=== PATIENT | male | born 1955 | race Caucasian/White ===

== ENCOUNTER 2020-03-22 20:27 | Emergency (ER) | payer OTHER, SELFPAY ==
[2020-03-22 20:46] VITALS: BP 197/110; PULSE 119; RESP 18; TEMP 37.2; O2SAT 100; BMI 22.8
--- NOTE | 2020-03-22 21:00 | PC.NURSE ---
Patient reports trip and fall at home, hitting face on doorway. Patient denies dizziness or LOC, reports mechanical fall. Laceration noted to left cheek. Denies any other injuries.
[2020-03-22 21:02] VITALS: PULSE 105; O2SAT 98
--- NOTE | 2020-03-22 21:29 | ED.WOUNDLAC ---
HPI - Wound/Laceration General Chief Complaint: Wound/Laceration Stated Complaint: fall, hit face, wound Time Seen by Provider: 03/22/20 21:28 Source: patient Mode of arrival: Ambulatory Limitations: no limitations History of Present Illness HPI narrative: Patient is a 64-year-old male who presents with left cheek laceration. He said he fell on his face and his glasses cut just below his left eye. No loss of consciousness on anti anti-platelet or anticoagulation medications. No other injury. Onset (ago): hour(s) Location: face Related Data Home Medications Medication Instructions Recorded Confirmed No Known Home Medications 03/22/20 03/22/20 Allergies Allergy/AdvReac Type Severity Reaction Status Date / Time No Known Drug Allergies Allergy Verified 03/22/20 20:49 Review of Systems Review of Systems Narrative: GENERAL: Denies chills,fever HEENT: Denies throat pain RESPIRATORY: Denies dyspnea, cough, wheezing CARDIOVASCULAR: Denies chest pain, palpitations GASTROINTESTINAL: Denies nausea, vomiting MUSCULOSKELETAL: Denies extremity pain, injury SKIN: See HPI NEUROLOGIC: Denies weakness, dizziness, headache, numbness 8 point review of systems is negative except for those stated above and HPI Patient History Medical History Patient denies medical problems Social History Smoking Status: Never smoker Smoking Status: Never smoker tobacco type: smokeless tobacco alcohol intake frequency: 3 or more drinks per day Alcohol type: beer Substance Use Type: does not use Exam Initial Vital Signs Initial Vital Signs: Vital Signs Temperature 98.9 F 03/22/20 20:46 Pulse Rate 119 H 03/22/20 20:46 Respiratory Rate 18 03/22/20 20:46 Blood Pressure 197/110 H 03/22/20 20:46 Pulse Oximetry 100 03/22/20 20:46 GENERAL: Well-appearing, well-nourished and in no acute distress. CARDIOVASCULAR: peripheral pulses in tact, cap refill <2 sec RESPIRATORY: No respiratory distress, speaks in full sentences without difficulty EXTREMITIES: Normal range of motion, no clubbing or edema. Neurovascularly intact NEUROLOGICAL: Cranial nerves II through XII grossly intact. Normal gait and speech. SKIN: 4 cm laceration left inferior left eye Procedures Laceration Repair Laceration 1: Site: face Side (If applicable): left Size (cm): 4 Description: linear Depth: simple, single layer Local Anesthetic: lidocaine 1% and with epi Amount of anesthesia used (mL): 4 Pre-repair: wound explored, irrigated extensively and deep structures intact Skin layer closed with: nylon Size (cm): 5-0 Number of sutures: 4 Technique: simple, interrupted Course Orders Ordered: Discontinued Medications Lidocaine/Epinephrine (Lidocaine 1% W/Epi) 1 ml SUBCUT NOW ONE Stop: 03/22/20 21:39 Last Admin: 03/22/20 21:41 Dose: 1 ml Documented by: TODD Vital Signs Vital signs: Vital Signs - 8 hr 03/22/20 20:46 03/22/20 21:02 03/22/20 21:30 Temperature 98.9 F Pulse Rate 119 H 105 H 107 H Respiratory Rate 18 Blood Pressure 197/110 H 168/89 H Pulse Oximetry 100 98 98 03/22/20 22:00 Temperature Pulse Rate 106 H Respiratory Rate Blood Pressure 179/88 H Pulse Oximetry 98 Discharge Plan Departure Patient Disposition: Home Clinical Impression: Laceration of face Qualifiers: Encounter type: initial encounter Qualified Code(s): S01.81XA - Laceration without foreign body of other part of head, initial encounter Instructions: DI for Laceration Repair Activity Restrictions/Additional Instructions: 1. Have your suture removed in 5-7 days, you may go to walk-in clinic, return to the ER or call your primary care physician. May apply triple antibiotic ointment 1-2 times daily to help with healing. Keep clean and dry with soap and water. 2. No soaking in water including dishes, bathtubs, Lakes, swimming pools etc 3. Signs of infection include, but not limited to, increased redness, increased swelling, increased pain, fever and purulent drainage, if the symptoms should arise, you may need an antibiotic and you should have a reevaluation either by your primary care provider or by the emergency department. Prescriptions: No Action No Known Home Medications RF: 0 Referrals: [facility] [Outside]
[2020-03-22 21:30] VITALS: BP 168/89; PULSE 107; O2SAT 98
--- NOTE | 2020-03-22 21:30 | PC.NURSE ---
Patient showing tachycardia at 105 on athletic monitor. Denies chest pain, dizziness, or shortness or breath. Provider notified and aware.
[2020-03-22] MEDS: LIDOCAINE 1% W/EPI 1 ML SUBCUT (21:41)
[2020-03-22 22:00] VITALS: BP 179/88; PULSE 106; O2SAT 98
== END 2020-03-22 22:21 | disposition home or self-care (01) ==
PROVIDERS: Emergency Provider Emergency Medicine
DX: S01.81XA Laceration without foreign body of other part of head, initial encounter (principal); W25.XXXA Contact with sharp glass, initial encounter
CPT/HCPCS: 12013; 99283

== ENCOUNTER 2024-10-30 15:44 | Emergency (ER) | payer SELFPAY ==
[2024-10-30 16:10] VITALS: BP 189/101; PULSE 115; RESP 18; TEMP 36.9; O2SAT 97; BMI 22.8
[2024-10-30 18:10] VITALS: BP 198/108; PULSE 111
[2024-10-30 18:16] VITALS: BP 197/115; PULSE 111; O2SAT 98
[2024-10-30 19:16] LABS: Add Manual Diff / Slide Review NO; Hematocrit 42.2 % (41-53); Hemoglobin 13.9 g/dL (13.5-17.5); Lymphocytes Absolute Auto 1900 /uL (1100-4500); Mean Corpuscular HGB Conc 33.0 % (30-36); Mean Corpuscular Hemoglobin 31.2 PG (26-34); Mean Corpuscular Volume 94.6 fL (80-100); Platelet Count 376 X10^3/uL (150-400)
[2024-10-30 19:30] LABS: Acetaminophen < 10 ug/mL (10-30); Alanine Aminotransferase 85 IU/L (<50); Albumin 4.5 g/dL (3.5-5.0); Albumin Globulin Ratio 1.4 (1.0-2.8); Alkaline Phosphatase 202 U/L (38-126); Blood Urea Nitrogen 14 mg/dL (9-20); Calcium 8.9 mg/dL (8.4-10.2); Carbon Dioxide 23 mmol/L (22-32); Chloride 99 mmol/L (98-107); Estimated Glomerular Filt Rate > 60 mL/min (>60); Ethanol (ETOH) 115 mg/dL (<10); Globulin 3.3 g/dL (1.7-4.1); Glucose 77 mg/dL (70-99); HEMOLYSIS < 15 (0-50); Potassium 4.0 mmol/L (3.4-5.1); Salicylate < 1.0 mg/dL (<20); Sodium 138 mmol/L (137-145); Total Protein 7.8 g/dL (6.3-8.2)
[2024-10-30 21:28] LABS: COVID19 -Nasal RAPID Negative (Negative)
[2024-10-30 22:11] LABS: Ur Creatinine Normal (Normal); Ur Specific Gravity Normal (Normal)
[2024-10-30 22:12] LABS: Urine MDMA Negative (Negative); Urine Methamphetamines Negative (Negative); Urine THC Negative (Negative); Urine Tricyclic Antidepressant Negative (Negative); Urine pH Normal (Normal)
[2024-10-30 22:21] LABS: Culture Indicated Urine Cult Not Indicated
--- NOTE | 2024-10-30 22:31 | ED.ALCOHOL ---
HPI - Alcohol General Chief Complaint: Toxicology Problem Stated Complaint: intoxication Time Seen by Provider: 10/30/24 18:04 Source: patient Mode of arrival: Ambulatory History of Present Illness HPI narrative: 69-year-old male patient history of hypertension here for medical clearance to be admitted to alcohol rehab. His last drink was a few hours ago to drinking heavily 3 years ago pt a day of straight up vodka. He previously has a history of hypertension previously on losartan but has been noncompliant in taking his medicines. He denies any complaints head to toe at this time. Other than what is stated 14 point review of system is negative. Related Data Previous Rx's ?Medication ?Instructions ?Recorded losartan 50 mg tablet 50 mg PO DAILY #30 tabs 10/30/24 losartan 50 mg tablet 50 mg PO DAILY #30 tabs 10/30/24 losartan 50 mg tablet 50 mg PO DAILY #30 tabs 10/30/24 Allergies Allergy/AdvReac Type Severity Reaction Status Date / Time No Known Drug Allergies Allergy Verified 03/22/20 20:49 Review of Systems Review of Systems ROS Unobtainable: All systems reviewed & are unremarkable except as noted in HPI and below Patient History Medical History Patient denies medical problems tobacco type: smokeless tobacco alcohol intake frequency: 3 or more drinks per day Alcohol type: beer and hard liquor Exam Narrative Exam Narrative: GENERAL: [69] year old patient appears stated age. Well-developed patient, in mild distress. HEAD: Atraumatic. Normocephalic. EYES: Pupils equal round and reactive. Extraocular motions intact. No scleral icterus. No injection or drainage. ENT: Nose without bleeding, purulent drainage. Throat without erythema, tonsillar hypertrophy or exudate. Airway patent. NECK: Trachea midline. Non tender CARDIOVASCULAR: Regular rate and rhythm without murmurs, gallops, or rubs. RESPIRATORY: Clear to auscultation. Breath sounds equal bilaterally. No wheezes, rales, or rhonchi. GASTROINTESTINAL: Abdomen soft, non-tender, nondistended. EXTREMITIES: No edema or joint tenderness. BACK: Nontender without deformity or crepitance. No flank tenderness. NEURO: AOx3. SKIN: No rash or erythema of visible areas Initial Vital Signs Initial Vital Signs: Vital Signs Temperature 98.5 F 10/30/24 16:10 Pulse Rate 115 H 10/30/24 16:10 Respiratory Rate 18 10/30/24 16:10 Blood Pressure 189/101 H 10/30/24 16:10 Pulse Oximetry 97 10/30/24 16:10 Oxygen Delivery Method Room Air 10/30/24 16:10 Course Orders Ordered: ED Orders 10/30/24 18:37 Consult to [employer] - [employer] 10/30/24 19:00 Acetaminophen Stat Complete Blood Count AUTO DIFF Stat Comprehensive Metabolic Panel Stat Ethanol (ETOH) Stat Hepatic (Liver) Panel Stat Salicylate Stat 10/30/24 21:09 COVID19 -Nasal RAPID Stat 10/30/24 21:55 Urine Drug Screen, Rapid Stat Urine Microscopic Stat Discontinued Medications Lorazepam (Lorazepam 0.5 Mg Tablet) 2 mg PO NOW ONE Stop: 10/30/24 21:44 Last Admin: 10/30/24 21:49 Dose: 2 mg Documented By: HNG Vital Signs Vital signs: Vital Signs - 8 hr 10/30/24 16:10 10/30/24 18:10 10/30/24 18:16 Temperature 98.5 F Pulse Rate 115 H 111 H 111 H Respiratory Rate 18 Blood Pressure 189/101 H 198/108 H 197/115 H Pulse Oximetry 97 98 Oxygen Delivery Method Room Air Room Air MDM - Alcohol Lab Data 10/30/24 19:00 10/30/24 19:00 Labs: Lab Results 10/30/24 10/30/24 10/30/24 Range/Units 19:00 21:09 21:55 WBC 12.2 H (4.5-11.0) X10^3/uL RBC 4.46 L (4.5-5.9) X10^6/uL Hgb 13.9 (13.5-17.5) g/dL Hct 42.2 (41-53) % MCV 94.6 (80-100) fL MCH 31.2 (26-34) PG MCHC 33.0 (30-36) % RDW 14.5 (11.6-14.8) % Plt Count 376 (150-400) X10^3/uL Neut % (Auto) 77.4 H (50-75) % Lymph % (Auto) 15.9 L (25-40) % [place] % (Auto) 5.1 (3-14) % Eos % (Auto) 0.4 L (2-4) % Baso % (Auto) 1.2 (0-2) % Neut # (Auto) 9500 H (5960-7244) /uL Lymph # (Auto) 1900 (3418-5051) /uL [place] # (Auto) 600 (0-900) /uL Eos # (Auto) 0 (0-450) /uL Baso # (Auto) 100 (0-100) /uL Sodium 138 (137-145) mmol/L Potassium 4.0 (3.4-5.1) mmol/L Chloride 99 (98-107) mmol/L Carbon Dioxide 23 (22-32) mmol/L BUN 14 (9-20) mg/dL Creatinine 0.76 (0.66-1.25) mg/dL Estimated GFR > 60 (>60) mL/min BUN/Creatinine Ratio 18.4 (6-22) Glucose 77 (70-99) mg/dL Calcium 8.9 (8.4-10.2) mg/dL Total Bilirubin 0.8 (0.2-1.3) mg/dL Conjugated Bilirubin 0.0 (0.0-0.3) md/dL Unconjugated Bilirubin 0.3 (0.0-1.1) mg/dL AST 87 H (17-59) IU/L ALT 85 H (<50) IU/L Alkaline Phosphatase 202 H (38-126) U/L Total Protein 7.8 (6.3-8.2) g/dL Albumin 4.5 (3.5-5.0) g/dL Globulin 3.3 (1.7-4.1) g/dL Albumin/Globulin Ratio 1.4 (1.0-2.8) Urine RBC None seen (0-5/HPF) Urine WBC None seen (0-5/HPF) Ur Squamous Epith Cells 0-1 /hpf (0-5/HPF) Urine Bacteria None seen (None) Ur Culture Indicated? Cult not indicated Vol Urine Centrifuged 10ml (spun) Salicylates < 1.0 (<20) mg/dL U Opiates 300ng/mL cut Negative (Negative) Ur Oxycodone Screen Positive H (Negative) Urine Methadone Screen Negative (Negative) Acetaminophen < 10 (10-30) ug/mL Ur Barbiturates Screen Negative (Negative) U Tricyclic Antidepress Negative (Negative) Ur Phencyclidine Scrn Negative (Negative) Ur Amphetamines Screen Negative (Negative) U Methamphetamines Scrn Negative (Negative) Ur MDMA Scrn (Ecstasy) Negative (Negative) U Benzodiazepines Scrn Negative (Negative) Urine Cocaine Screen Negative (Negative) U Marijuana (THC) Screen Negative (Negative) Urine pH Normal (Normal) Urine Specific [place] Normal (Normal) Ethyl Alcohol 115 H (<10) mg/dL Ur Creatinine Normal (Normal) SARS-CoV-2 (PCR) Negative (Negative) Urine Dip Bedside Urine Glucose Negative Bedside Urine Bilirubin + 1 Bedside Urine Ketone ++ 40 Urine Specific [place] 1.030 Bedside Urine Occult Blood - Negative Bedside Urine pH 6.0 Bedside Urine Protein + 30 Bedside Urine Urobilinogen - Negative Bedside Urine Nitrite - Negative Bedside Urine Leukocytes - Negative Esterase MDM Narrative Medical decision making narrative: Vital signs, nurse triage note, medication list, previous ER visits, and all imaging study reviewed. White count of 12.2 hemoglobin 13.9 AST 87 ALT 85 alk-phos 202 rest of CMP is normal. UDS positive for oxycodone. Alcohol level is 115. COVID negative. Differential diagnosis includes alcohol use, abuse, noncompliant with hypertension meds. Given losartan and ativan here we will refill losartan on DC to rehab. Discharge Plan Departure Patient Disposition: Home Clinical Impression: Alcohol abuse Hypertension Qualifiers: Hypertension type: primary hypertension Qualified Code(s): I10 - Essential (primary) hypertension Instructions: DI for Alcohol Use Disorder Activity Restrictions/Additional Instructions: Return with new or worsening symptoms. Take blood pressure medicine as prescribed. Follow up with drug rehab. Prescriptions: New losartan 50 mg tablet 50 mg PO DAILY Qty: 30 0RF losartan 50 mg tablet 50 mg PO DAILY Qty: 30 0RF losartan 50 mg tablet 50 mg PO DAILY Qty: 30 0RF Stand Alone Forms: Patient Portal/API
[2024-10-30 22:35] VITALS: BP 203/99
[2024-10-30] MEDS: LOSARTAN 50 MG TABLET PO (22:35)
== END 2024-10-30 23:11 | disposition home or self-care (01) ==
PROVIDERS: Emergency Provider Family Medicine
DX: F10.10 Alcohol abuse, uncomplicated (principal); I10 Essential (primary) hypertension
CPT/HCPCS: 80053; 80076; 80305; 80320; 80329; 81003; 81015; 85025; 87635; 99283; G0480